=== PATIENT | male | born 1955 | race Caucasian/White ===

== ENCOUNTER → 2017-08-20 | Outpatient (CLI) | payer OTHER ==
[~2017-08-20] MED LIST: ALL180 PO; ASPEC81 PO; CPR500 PO; FLNIN NAE; HYDC25 PO; LISI40TA PO; LRT5 PO; SIMV20TA2 PO
--- NOTE | 2017-08-20 08:17 | DIAGNOSTIC IMAGING REPORT ---
CT LUNG SCREENING, LOW DOSE WITH COMPUTER-AIDED DETECTION (CAD) CLINICAL HISTORY: Current smoker. Lung screening. COMPARISON STUDY: No previous studies for comparison. CT DOSE: 92.54 mGy.cm TECHNIQUE: Low-dose helical CT was acquired without intravenous contrast from lung apices to bases and reconstructed at 2.5 mm every 2 mm. CAD was utilized for this study. A dose lowering technique was utilized adhering to the principles of ALARA. FINDINGS: Mild to moderate emphysema. Small linear scarlike density within the medial left upper lobe. No mediastinal or hilar lymphadenopathy. The heart is normal in size. No pleural or pericardial effusions. No pneumothorax. No fractures within the visualized osseous structures. Limited views of the upper abdomen demonstrate a normal liver and spleen. The visualized adrenal glands are unremarkable. There are 2 subcentimeter nodules within the left lung as described below. Mild bronchial wall thickening. Nodule 1 Category: 2 Nodule 1 Status: Baseline Nodule 1 Description: Solid Nodule 1 Lesion ID: 2 Nodule 1 Slice Number: 110 Nodule 1 Volume (mm3): 43 Nodule 1 Major [place] mm: 4.9 Nodule 1 Minor [place] mm: 2.7 Nodule 2 Category: 2 Nodule 2 Status: Baseline Nodule 2 Description: Solid Nodule 2 Lesion ID: 1 Nodule 2 Slice Number: 61 Nodule 2 Volume (mm3): 21 Nodule 2 Major [place] mm: 3.8 Nodule 2 Minor [place] mm: 3.1 IMPRESSION: 1. Mild to moderate emphysema. 2. There are 2 subcentimeter nodules within the left lung with recommendations as described below. CAD FINDINGS: Overall Lung RADS Category: 2 Lung RADS Management Recommendation: Continue annual lung cancer screening. Lung RADS Follow Up Date: 2018-08-20 Lung RADS Nodule ID: 2 Electronically signed by: Estiven Mcarthur M.D. 08/20/2017 8:16 AM Dictated Date/Time: 08/20/2017 7:59 AM
== END | disposition home or self-care (01) ==
LOC: C.CTS 07:42
PROVIDERS: ATTEND Family Medicine
DX: J43.9 Emphysema, unspecified (principal); R91.8 Other nonspecific abnormal finding of lung field; F17.200 Nicotine dependence, unspecified, uncomplicated